=== PATIENT | male | born 1960 | race Caucasian/White ===

== ENCOUNTER 2018-07-10 00:06 | Inpatient (IN) ==
[2018-07-10] MEDS ORDERED: *HR* LORazepam 2 MG/ML VIAL IM PRN (00:19)
[2018-07-10] MEDS ORDERED: Mag Hydrox/Al Hydrox/Simeth 30 ML UDC PO PRN (00:19)
[2018-07-10] MEDS ORDERED: *HR* LORazepam 1 MG TABLET PO PRN (00:19)
[2018-07-10] MEDS ORDERED: MOM Conc 10 ML UD.LIQ PO PRN (00:19)
[2018-07-10] MEDS: hydrOXYzine pamoate 25 MG CAPSULE PO PRN ×2 (01:48→20:28)
[2018-07-10] MEDS: traZODone 50 MG TABLET PO PRN ×2 (01:48→20:29)
[2018-07-10] MEDS ORDERED: Ziprasidone injection 20 MG/ML VIAL IM PRN (07:19)
[2018-07-10] MEDS ORDERED: Ziprasidone 20 MG CAPSULE PO PRN (07:32)
--- NOTE | 2018-07-10 10:58 | Psychiatry History & Physical ---
Date of Encounter: 07/10/18 Time of Encounter: 10:25 History of Present Illness Patient Stated Chief Complaint: i am not able to function. Medicare Admission Attestation: For traditional Medicare patients the provided hospital inpatient services are reasonable and necessary and in the case of services not specified as inpatient -only under 42 CFR 419.22 (n), that they are appropriately provided as inpatient services in accordance 42 CFR 412.3. For Critical Access Hospital the patient may reasonably be expected to be discharged or transferred to a hospital within 96 hours after admission to the Critical Access Hospital. Admitted From: Direct Admit Plans for Post Hospital Care: Home History of Present Illness: Mr. Huang is a 57 year old male evaluated today. He was direct admission from [facility] , he has long psychiatric history of depression , anxiety , psychosis and suicidal attempts. as per him he is frustrated that he is unable to do things and has bad concenteration and memory , states was in [facility] for 25 months and does not know why states i was in wheel chair now i am walking with walker , he has had back surgeries and knee replacement , he was dc on 02/15. He states he has not been given any psych medication for long time and has been feeling depress, i can not snap out of it, i am paranoid and i do not care about anything and not interested in any thing ,hopeless, worthless and suicidal thoughts , he had plan to shoot self but i do not now. States i should have when i jumped off the bridge but i did not , he regrets why he is still alive. At present depress, suicidal passive thoughts, no motivation , sleep is ok with medication , otherwise not, he at present is high risk as 3 lethal suicide attempts in past. He denies any substance use . cig. 1 ppd. Medical: chronic pain , multiple surgeries, Family : none Social Single , one child who is was 28 yrs old he OD on heroin. lives with his sister, on disability . legal none Will start medication , inpatient psychiatric treatment for safety . start cymballta 30 mg po am as he has taken almost all ssri and without much improvement. hydroxyzine prn abilify 2 mg pm Past Med Surg Social Fam HX - Past Medical History Medical history: COPD, migraine - Past Psychiatric History Psychiatric history: Reports: anxiety, bipolar, depression, prior suicide attempt, previous psychiatric hospitalization Family psychiatric history: No Family History of Suicide: None - Past Surgical History Surgical History: orthopedic, other (knee replacement and back surgeries) - Social History Smoking Status: Current every day smoker Smokeless Tobacco Status: No Alcohol use: rarely Drug use: none Occupational status: disabled Current living situation: Home, With Family Activity Level: Uses cane/walker Recent Out of Country Travel Within the Last 8 Weeks: No Exposure or Possible Exposure to Illness During Travel: No Medications & Allergies 3 Allergy/AdvReac Type Severity Reaction Status Date / Time haloperidol [From Haldol] Allergy Anaphylaxis Verified 07/10/18 00:18 tramadol Allergy Agitated Verified 07/10/18 00:18 Review of Systems Constitutional: Denies: fever, chills, weakness, weight change Eyes: Denies: eye pain, vision change Ears, Nose, Throat: Denies: ear pain, throat pain, dental pain, hearing loss, congestion Cardiovascular: Denies: chest pain, palpitations, dyspnea on exertion Respiratory: Denies: cough, dyspnea, wheezes Gastrointestinal: Denies: abdominal pain, nausea, vomiting, diarrhea, constipation Genitourinary male: Denies: urgency, dysuria, frequency, genital lesions Musculoskeletal: Reports: back pain, joint pain Integumentary: Denies: rash, lesions, pruritus Neurological: Denies: headache, weakness, numbness, memory loss Psychiatric: Reports: depression, anxiety, abnormal sleep pattern, suicidal ideation, change in appetite, difficulty concentrating, hopelessness, mood swings Endocrine: Denies: fatigue, heat or cold intolerance Hematologic/Lymphatic: Denies: easy bruising, lymphadenopathy Allergic/Immunologic: Denies: urticaria, itchy eyes Exam - HEENT Head exam IM: Present: atraumatic, normal inspection, normocephalic Eye exam IM: Present: EOMI, normal appearance, PERRL ENT exam IM: Present: normal exam - Neurological Neurological exam: Present: CN II-XII intact - Respiratory Respiratory exam IM: Present: CTAB - Skin Skin exam IM: Present: dry, warm - Constitutional Vitals: Temp Pulse Resp BP 97.8 F 101 18 119/76 07/10/18 09:00 07/10/18 09:00 07/10/18 09:00 07/10/18 09:00 General appearance: average - Musculoskeletal Gait: slow, other (with walker) Station: other Strength & Tone: normal for patient - Psychiatric Patient Orientation: Yes Person, Yes Time, Yes Place Level of alertness: Alert Behavior: calm, cooperative, withdrawn Psychomotor activity: Slowed Eye Contact: Maintains Eye Contact Mood Description: Depressed, Anxious Affect description: congruent with mood Speech Volume: Normal Speech pattern: normal rate, normal rhythm, normal tone, coherent Language & Vocabulary: consistent with education Thought Process: Slowed Thinking Thought Content: Yes Suicidal ideation, Yes Guilt Attention Span Ability: Unable to Sustain Attention Memory Description: Grossly Intact Patient Reliability: Reliable Historian Fund of knowledge: Yes average Intelligence Estimate: Average Judgment: Limited Insight: Partial Assessment and Plan (1) Suicidal ideation Current visit: Yes Status: Acute Plan: Admit inpatient for safety and stabilization, Close observation, Suicide Precautions per unit protocol, Encourage participation in unit milieu, Group Therapy, Monitor sleep, Monitor appetite, Secure weapons, Family/Supportive other meeting Risks, benefits, side effects, alternatives discussed w/pt: Yes Patient agreeable to treatment: Yes Plans for Post Hospital Care: at Home (2) Major depress dis, severe Current visit: Yes Status: Acute Plan: Admit inpatient for safety and stabilization, Close observation, Suicide Precautions per unit protocol, Encourage participation in unit milieu, Group Therapy, Monitor sleep, Monitor appetite, Secure weapons, Family/Supportive other meeting Additional Plan: will start medication and needs inpatient for safety Risks, benefits, side effects, alternatives discussed w/pt: Yes Patient agreeable to treatment: Yes Plans for Post Hospital Care: at Home Estimated Length of Stay (Days): 5
[2018-07-10] MEDS: ARIPiprazole 2 MG TABLET PO SCH (11:27)
[2018-07-10] MEDS: Nicotine 2 MG GUM BC PRN ×3 (11:28→20:28)
[2018-07-10 11:40] LABS: Hematocrit 47.3 % (37.5-50.1); Hemoglobin 14.5 g/dL (12.9-16.9); Mean Corpuscular HGB Conc 30.7 g/dL (31.6-35.5); Mean Corpuscular Hemoglobin 23.1 pg (28.0-33.3); Mean Corpuscular Volume 75.4 fL (83.0-100.0); Mean Platelet Volume 9.7 fL (9.4-12.4); Platelet Count 291 K/mcL (140-400); Red Blood Count 6.27 M/mcL (4.19-5.50); Red Cell Distribution Width 22.7 % (11.5-14.5)
[2018-07-10 12:14] LABS: Alanine Aminotransferase 43 Units/L (7-52); Albumin 3.8 g/dL (3.5-5.7); Albumin/Globulin Ratio 1.2 (1.1-2.2); Alkaline Phosphatase 114 Units/L (34-104); Aspartate Amino Transferase 37 Units/L (13-39); BUN/Creatinine Ratio 17 (6-26); Bilirubin,Total 0.4 mg/dL (0.3-1.0); Blood Urea Nitrogen 16 mg/dL (6-20); Calcium 9.3 mg/dL (8.6-10.3); Carbon Dioxide 22 mEq/L (23-29); Chloride 108 mEq/L (98-107); Globulin 3.2 g/dL (2.4-3.5); Glucose 99 mg/dL (70-105); Osmolality,Calculated 289 (280-300); Potassium 4.4 mEq/L (3.5-5.1); Sodium 139 mEq/L (136-145); eGFR For Non-African Americans > 60 (> 60)
[2018-07-10 12:15] LABS: Thyroid Stimulating Hormone 1.738 mcIU/mL (0.340-5.600)
[2018-07-10] MEDS: Acetaminophen 325 MG TABLET PO PRN (20:28)
[2018-07-11] MEDS: ARIPiprazole 2 MG TABLET PO SCH (10:42)
[2018-07-11] MEDS: Nicotine 2 MG GUM BC PRN ×3 (10:43→18:55)
--- NOTE | 2018-07-11 11:47 | Psychiatry Progress Note ---
Date of Encounter: 07/11/18 Time of Encounter: 11:45 Subjective Interval history: Patient is a 57-year-old male. The patient has been admitted involuntarily. Chief complaint what else will help my depression. The patient has been treated for depression. The history suggests that he is primarily been placed on SSRIs. He was not working with his local [facility] called [facility] in [facility]. Instead the patient presented for ongoing treatment. 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 He is not currently involved in counseling or psychotherapy. Nonetheless the patient meets most criteria for treatment refractory depression. Based on this and medication selections he was started on Cymbalta 30 mg per day this may also have to do with the patient's orthopedic injuries. He is tolerated 30 mg without significant side effects. The patient is also been placed on Abilify for augmentation. And is tolerated 2 mg The patient and I engaged in a session of counseling. The counseling when on for a total of 18 minutes with 10 minutes being devoted to the in and visit. Thus the counseling was greater than 50% of the visit. In that counseling we talked about treatment refractory depression and treatment options with medications. We talked about FDA approved neuromodulator karen treatment. This includes transcranial magnetic stimulation, electroconvulsive therapy or ECT, vagus nerve stimulation (VNS), and deep brain stimulation for depression, DBS. The patient lives in a referral part of [place] and does not have ready access to TMS. It is a bit of a drive for ECT but he is interested in this treatment and we talked about some of the facilities he likes the idea of [facility] in [facility]. He is familiar with some of the features of ECT. He is interested in a favorable response rate and help with depression. The patient has had suicidal ideation only has no plans to kill himself here he asked himself why he is alive he feels hopeless and helpless. Nonetheless patient was cautioned that a second trial medicine would be advised and follow- up at [facility] would be part of the treatment for referral for ECT could be considered. Said the patient considered these options and elected to increase duloxetine to 60 mg per day. Side effects were discussed as part of the counseling area the patient has a wheeled walker that he uses for ambulation Review of Systems Psychiatric: Reports: depression, anxiety, abnormal sleep pattern, suicidal ideation, change in appetite, difficulty concentrating, hopelessness, mood swings Results - Vital Signs Vital Signs: Temp Pulse Resp BP 97.1 F L 103 18 120/85 07/11/18 09:00 07/11/18 09:00 07/11/18 09:00 07/11/18 09:00 - Labs Labs: Laboratory Results - last 24 hr 07/10/18 11:25 Sodium 139 Potassium 4.4 Chloride 108 H Carbon Dioxide 22 L BUN 16 Creatinine 0.92 Est GFR ( Amer) > 60 Est GFR (Non-Af Amer) > 60 BUN/Creatinine Ratio 17 Glucose 99 Calculated Osmolality 289 Calcium 9.3 Total Bilirubin 0.4 AST 37 ALT 43 Alkaline Phosphatase 114 H Serum Total Protein 7.0 Albumin 3.8 Globulin 3.2 Albumin/Globulin Ratio 1.2 TSH 1.738 Assessment and Plan (1) Major depress dis, severe Current visit: Yes Status: Acute Plan: Continue hospitalization, Close observation, Suicide Precautions per unit protocol, Encourage participation in unit milieu, Group Therapy, Secure weapons Risks, benefits, side effects, alternatives discussed w/pt: Yes Patient agreeable to treatment: Yes (2) Suicidal ideation Current visit: Yes Status: Acute Plan: Continue hospitalization, Secure weapons Risks, benefits, side effects, alternatives discussed w/pt: Yes Patient agreeable to treatment: Yes Consult Discharge Plan - Plan Referrals: Mark Whitaker [facility] [Outside] - 07/24/18 2:00 pm (The above appointment is with Ami Heck, marionette performer, to establish you as a client. When you come to your first appointment, you will be completing paperwork, meeting with an marionette performer, and developing a treatment plan. You will receive follow- up appointments for on-going mental health services, which could include community support, individual counseling, and/or groups. You are also scheduled to see Javed Mohinder on 07/30/2018 at 10:30 AM for outpatient psychiatric assessment and medication management services. You must keep your intake appointment in order to see the psychiatric prescriber. Please bring your insurance card and photo ID to you first appointment. If you are unable to keep this appointment, 24 hour business notice of cancellation is expected. The above appointment(s) reflects first availability. You may contact the office regularly to check for cancellations that may allow you to be seen sooner.) Payal De La Torre MD [Non-Partnered Physician] - 07/17/18 10:40 am (The above appointment is with Dr. De La Torre to establish with a primary care provider. Please bring your photo ID and insurance card to this appointment) Psychiatry Exam - Constitutional Vitals: Temp Pulse Resp BP 97.1 F L 103 18 120/85 07/11/18 09:00 07/11/18 09:00 07/11/18 09:00 07/11/18 09:00 General appearance: age & developmentally appropriate, unkempt, thin - Musculoskeletal Gait: other Station: stooped Strength & Tone: mild weakness - Psychiatric Patient Orientation: Yes Person, Yes Time, Yes Place, Yes Circumstance Level of alertness: Alert Behavior: calm Psychomotor activity: Normal Eye Contact: Maintains Eye Contact Mood Description: Depressed Affect description: dysphoric Speech Volume: Normal Speech pattern: normal rate Language & Vocabulary: consistent with education Thought Process: Logical Thought Content: Yes Suicidal ideation, Yes Obsessive thoughts, Yes Guilt Attention Span Ability: Capable of Focused Attention Memory Description: Grossly Intact Patient Reliability: Reliable Historian Fund of knowledge: Yes abstraction ability Intelligence Estimate: Average Judgment: Fair Insight: Partial
[2018-07-11] MEDS: Acetaminophen 325 MG TABLET PO PRN (20:07)
[2018-07-11] MEDS: hydrOXYzine pamoate 25 MG CAPSULE PO PRN (20:07)
[2018-07-11] MEDS: traZODone 50 MG TABLET PO PRN (20:07)
[2018-07-12] MEDS: ARIPiprazole 2 MG TABLET PO SCH (10:45)
[2018-07-12] MEDS: Nicotine 2 MG GUM BC PRN (10:46)
--- NOTE | 2018-07-12 11:38 | Psychiatry Progress Note ---
Date of Encounter: 07/12/18 Time of Encounter: 11:30 Subjective Interval history: The patient is a 57-year-old white male. Chief complaint I am some trouble with attention and concentration. The patient continues to have features of major depressive disorder including suicidal ideation. He has no plans to kill himself on the unit. He finds difficult to follow conversations area yesterday the patient and I talked about electroconvulsive therapy. We discussed options at [place] and I gave him the information for Dr. Amaury Cosme of [facility]. This included the address and contact. Nonetheless the patient has follow-up appointments in his home town with his mental Health Center and he was told that he needed to follow up with these before beginning a course of ECT he notes that he still having pain that is contributing to his depression as it can lead to psychomotor slowing and limited activity concentration. He agreed to a trial of baclofen 10 mg 3 times a day. The patient still has trouble with attention concentration. I told him to look at the sports and news for recent events and try to discuss those with others to see how he did. Patient was also told he could not talk to his sister in a conversation see how conversation goes. The patient agreed to an increase in Abilify 5 mg daily at bedtime. He notes no particular side effects of headaches nausea and dizziness unsteadiness or incoordination or restlessness. The patient's Cymbalta is not 60 mg per day. I did not want to increase this further as he is not only had one dose. As part of today's visit. The patient and I spent 25 minutes in discussion 8 minutes were spent on the adjustments of medications. And 22 minutes were spent on discussion of how to measure treatment response how to access ECT and management of major depression side effects. Review of Systems Psychiatric: Reports: depression, anxiety, abnormal sleep pattern, suicidal ideation, change in appetite, anhedonia, memory loss, difficulty concentrating, hopelessness, mood swings Results - Vital Signs Vital Signs: Temp Pulse Resp BP 98.3 F 75 18 139/76 07/11/18 19:45 07/11/18 19:45 07/11/18 19:45 07/11/18 19:45 Assessment and Plan (1) Major depress dis, severe Current visit: Yes Status: Acute Plan: Continue hospitalization, Close observation, Suicide Precautions per unit protocol, Monitor sleep, Monitor appetite Risks, benefits, side effects, alternatives discussed w/pt: Yes Patient agreeable to treatment: Yes (2) Suicidal ideation Current visit: Yes Status: Acute Plan: Suicide Precautions per unit protocol, Secure weapons Risks, benefits, side effects, alternatives discussed w/pt: Yes Patient agreeable to treatment : Yes Consult Discharge Plan - Plan Referrals: Mark RAIN Julianne [facility] [Outside] - 07/24/18 2:00 pm (The above appointment is with Ami Heck, triage clinician, to establish you as a client. When you come to your first appointment, you will be completing paperwork, meeting with an triage clinician, and developing a treatment plan. You will receive follow- up appointments for on-going mental health services, which could include community support, individual counseling, and/or groups. You are also scheduled to see Javed Mohinder on 07/30/2018 at 10:30 AM for outpatient psychiatric assessment and medication management services. You must keep your intake appointment in order to see the psychiatric prescriber. Please bring your insurance card and photo ID to you first appointment. If you are unable to keep this appointment, 24 hour business notice of cancellation is expected. The above appointment(s) reflects first availability. You may contact the office regularly to check for cancellations that may allow you to be seen sooner.) Payal De La Torre MD [Non-Partnered Physician] - 07/17/18 10:40 am (The above appointment is with Dr. De La Torre to establish with a primary care provider. Please bring your photo ID and insurance card to this appointment) Psychiatry Exam - Constitutional Vitals: Temp Pulse Resp BP 98.3 F 75 18 139/76 07/11/18 19:45 07/11/18 19:45 07/11/18 19:45 07/11/18 19:45 General appearance: age & developmentally appropriate - Musculoskeletal Gait: shuffling Station: slouched Strength & Tone: mild weakness - Psychiatric Patient Orientation: Yes Person, Yes Time, Yes Place, Yes Circumstance Level of alertness: Alert Behavior: anxious Psychomotor activity: Slowed Eye Contact: Maintains Eye Contact Mood Description: Depressed Affect description: congruent with mood Speech Volume: Normal Speech pattern: spontaneous Language & Vocabulary: consistent with education Thought Process: Intact, Slowed Thinking Thought Content: Yes Suicidal ideation Attention Span Ability: Capable of Sustained Attention Memory Description: Grossly Intact Patient Reliability: Reliable Historian Fund of knowledge: Yes abstraction ability Intelligence Estimate: Average Judgment: Fair Insight: Partial
[2018-07-12] MEDS: Baclofen 10 MG TABLET PO SCH ×2 (15:27→20:15)
[2018-07-12] MEDS: Nicotine 21 MG PATCH.TD24 TD SCH (15:27)
[2018-07-12] MEDS: traZODone 50 MG TABLET PO PRN (20:15)
[2018-07-12] MEDS: Acetaminophen 325 MG TABLET PO PRN (20:16)
[2018-07-12] MEDS: hydrOXYzine pamoate 25 MG CAPSULE PO PRN (20:44)
[2018-07-13] MEDS: Baclofen 10 MG TABLET PO SCH ×3 (09:12→20:07)
[2018-07-13] MEDS: ARIPiprazole 5 MG TABLET PO SCH (09:12)
[2018-07-13] MEDS: Nicotine 21 MG PATCH.TD24 TD SCH (09:13)
[2018-07-13] MEDS: Acetaminophen 325 MG TABLET PO PRN ×2 (09:14→20:09)
--- NOTE | 2018-07-13 12:57 | Psychiatry Progress Note ---
Date of Encounter: 07/13/18 Time of Encounter: 12:54 Subjective Interval history: Patient seen for follow-up. Case discussed was nursing staff. Patient continues to endorse suicidal ideation. Reports sleep is improving, he is depressed and focused on pain. He is not participating in group activities. Review of Systems Psychiatric: Reports: depression, anxiety, abnormal sleep pattern, suicidal ideation, change in appetite, anhedonia, memory loss, difficulty concentrating, hopelessness, mood swings Results - Vital Signs Vital Signs: Temp Pulse Resp BP 97.6 F 96 20 122/85 07/13/18 09:00 07/13/18 09:00 07/13/18 09:00 07/13/18 09:00 Consult Discharge Plan - Plan Referrals: Mark Whitaker [facility] [Outside] - 07/24/18 2:00 pm (The above appointment is with Ami Heck, eight section blower, to establish you as a client. When you come to your first appointment, you will be completing paperwork, meeting with an eight section blower, and developing a treatment plan. You will receive follow- up appointments for on-going mental health services, which could include community support, individual counseling, and/or groups. You are also scheduled to see Javed Vines on 07/30/2018 at 10:30 AM for outpatient psychiatric assessment and medication management services. You must keep your intake appointment in order to see the psychiatric prescriber. Please bring your insurance card and photo ID to you first appointment. If you are unable to keep this appointment, 24 hour business notice of cancellation is expected. The above appointment(s) reflects first availability. You may contact the office regularly to check for cancellations that may allow you to be seen sooner.) Payal De La Torre MD [Non-Partnered Physician] - 07/17/18 10:40 am (The above appointment is with Dr. De La Torre to establish with a primary care provider. Please bring your photo ID and insurance card to this appointment) Psychiatry Exam - Constitutional Vitals: Temp Pulse Resp BP 97.6 F 96 20 122/85 07/13/18 09:00 07/13/18 09:00 07/13/18 09:00 07/13/18 09:00 General appearance: age & developmentally appropriate, well-nourished, unkempt - Musculoskeletal Gait: normal, other (Using a walker) Station: relaxed Strength & Tone: normal for patient - Psychiatric Patient Orientation: Yes Person, Yes Time, Yes Place Level of alertness: Alert Behavior: calm, cooperative Psychomotor activity: Slowed Eye Contact: Maintains Eye Contact Mood Description: Depressed Affect description: congruent with mood, constricted Speech Volume: Normal Speech pattern: normal rate, normal rhythm, normal tone, fluent, spontaneous, limited Language & Vocabulary: consistent with education Thought Process: Linear, Goal Oriented Thought Content: Yes Suicidal ideation, No Homicidal ideation, No Overt delusions Perceptual Disturbances: No Auditory hallucinations, No Visual hallucinations Attention Span Ability: Capable of Focused Attention Memory Description: Grossly Intact Patient Reliability: Reliable Historian Fund of knowledge: Yes abstraction ability, Yes aware of current events Intelligence Estimate: Average Judgment: Limited Insight: Partial
[2018-07-13] MEDS: hydrOXYzine pamoate 25 MG CAPSULE PO PRN ×2 (15:49→20:07)
[2018-07-13] MEDS: traZODone 50 MG TABLET PO PRN (20:08)
[2018-07-14] MEDS: ARIPiprazole 5 MG TABLET PO SCH (09:05)
[2018-07-14] MEDS: Baclofen 10 MG TABLET PO SCH ×3 (09:05→20:27)
[2018-07-14] MEDS: hydrOXYzine pamoate 25 MG CAPSULE PO PRN (09:08)
[2018-07-14] MEDS: Nicotine 21 MG PATCH.TD24 TD SCH (09:10)
--- NOTE | 2018-07-14 13:22 | Psychiatry Progress Note ---
Date of Encounter: 07/14/18 Time of Encounter: 13:00 Subjective Interval history: Patient seen for follow-up with nursing staff. Patient continued to endorse suicidal ideation complain of feeling hopeless and unable to enjoy anything. He is asking for medication review and change and reported doing well on Klonopin in the past. He was able to function and socializes and now he is withdrawn and unable to enjoy or function. I discussed with him at length safety of benzodiazepine and risk off dependence. He is frustrated and unable to list any future plans or activities. Review of Systems Psychiatric: Reports: depression, anxiety, abnormal sleep pattern, suicidal ideation, change in appetite, anhedonia, memory loss, difficulty concentrating, hopelessness, mood swings Results - Vital Signs Vital Signs: Temp Pulse Resp BP 97.7 F 99 18 122/77 07/14/18 09:00 07/14/18 09:00 07/14/18 09:00 07/14/18 09:00 Consult Discharge Plan - Plan Referrals: Mark Julianne [facility] [Outside] - 07/24/18 2:00 pm (The above appointment is with Ami Heck, asic verification engineer, to establish you as a client. When you come to your first appointment, you will be completing paperwork, meeting with an asic verification engineer, and developing a treatment plan. You will receive follow- up appointments for on-going mental health services, which could include community support, individual counseling, and/or groups. You are also scheduled to see Javed Vines on 07/30/2018 at 10:30 AM for outpatient psychiatric assessment and medication management services. You must keep your intake appointment in order to see the psychiatric prescriber. Please bring your insurance card and photo ID to you first appointment. If you are unable to keep this appointment, 24 hour business notice of cancellation is expected. The above appointment(s) reflects first availability. You may contact the office regularly to check for cancellations that may allow you to be seen sooner.) Payal De La Torre MD [Non-Partnered Physician] - 07/17/18 10:40 am (The above appointment is with Dr. De La Torre to establish with a primary care provider. Please bring your photo ID and insurance card to this appointment) Psychiatry Exam - Constitutional Vitals: Temp Pulse Resp BP 97.7 F 99 18 122/77 07/14/18 09:00 07/14/18 09:00 07/14/18 09:00 07/14/18 09:00 General appearance: age & developmentally appropriate, well-groomed, well- nourished - Musculoskeletal Gait: normal, other (Using a walker) Station: relaxed Strength & Tone: normal for patient - Psychiatric Patient Orientation: Yes Person, Yes Time, Yes Place Level of alertness: Alert Behavior: calm, cooperative, anxious, guarded, withdrawn Psychomotor activity: Normal Eye Contact: Fleeting Contact Mood Description: Depressed, Anxious Affect description: congruent with mood, constricted, dysphoric Speech Volume: Normal Speech pattern: normal rate, normal rhythm, normal tone, fluent, spontaneous, limited Language & Vocabulary: consistent with education Thought Process: Linear, Goal Oriented Thought Content: Yes Suicidal ideation, No Homicidal ideation, No Overt delusions Perceptual Disturbances: No Auditory hallucinations, No Visual hallucinations Attention Span Ability: Capable of Focused Attention Memory Description: Grossly Intact Patient Reliability: Reliable Historian Fund of knowledge: Yes abstraction ability, Yes aware of current events Intelligence Estimate: Average Judgment: Limited Insight: Partial
[2018-07-14] MEDS: clonazePAM 1 MG TABLET PO SCH (20:27)
[2018-07-14] MEDS: traZODone 50 MG TABLET PO PRN (20:27)
[2018-07-15] MEDS: ARIPiprazole 5 MG TABLET PO SCH (09:26)
[2018-07-15] MEDS: Nicotine 21 MG PATCH.TD24 TD SCH (09:26)
[2018-07-15] MEDS: Baclofen 10 MG TABLET PO SCH ×3 (09:26→20:27)
[2018-07-15] MEDS: clonazePAM 1 MG TABLET PO SCH ×2 (09:26→20:27)
--- NOTE | 2018-07-15 13:48 | Psychiatry Progress Note ---
Date of Encounter: 07/15/18 Time of Encounter: 13:00 Subjective Interval history: Patient seen for follow-up. Case discussed at length with treatment team and social work administrator. Patient continued to be negative, making no effort to participate in activities or groups continued to make negative statements about his inability to do activities that he did in the past. He has no insight into the treatment plan and the treatment procedures, he also is demanding medication Klonopin and large ptosis after given him a small dose to help was what he "anxiety he is demanding increase in those ptosis most likely because of dependence. I educated him about medication and explained that these medication are not the answer to his condition or improving his depression. He is not motivated to do activities he has no insight into his discharge plan or living situation and I believe he may be only appropriate for placement in extended-care facility was supportive services. lithographic general worker will discuss discharge plans with his sister to decided on placement or living with his sister. Review of Systems Psychiatric: Reports: depression, anxiety, abnormal sleep pattern, suicidal ideation, change in appetite, anhedonia, memory loss, difficulty concentrating, hopelessness, mood swings Results - Vital Signs Vital Signs: Temp Pulse Resp BP 96.8 F L 99 16 113/81 07/15/18 09:00 07/15/18 09:00 07/15/18 09:00 07/15/18 09:00 Consult Discharge Plan - Plan Referrals: Mark Whitaker [facility] [Outside] - 07/24/18 2:00 pm (The above appointment is with Ami Heck, addressing machine operator, to establish you as a client. When you come to your first appointment, you will be completing paperwork, meeting with an addressing machine operator, and developing a treatment plan. You will receive follow- up appointments for on-going mental health services, which could include community support, individual counseling, and/or groups. You are also scheduled to see Javed Vines on 07/30/2018 at 10:30 AM for outpatient psychiatric assessment and medication management services. You must keep your intake appointment in order to see the psychiatric prescriber. Please bring your insurance card and photo ID to you first appointment. If you are unable to keep this appointment, 24 hour business notice of cancellation is expected. The above appointment(s) reflects first availability. You may contact the office regularly to check for cancellations that may allow you to be seen sooner.) Payal De La Torre MD [Non-Partnered Physician] - 07/17/18 10:40 am (The above appointment is with Dr. De La Torre to establish with a primary care provider. Please bring your photo ID and insurance card to this appointment) Psychiatry Exam - Constitutional Vitals: Temp Pulse Resp BP 96.8 F L 99 16 113/81 07/15/18 09:00 07/15/18 09:00 07/15/18 09:00 07/15/18 09:00 General appearance: age & developmentally appropriate, well-groomed, well- nourished - Musculoskeletal Gait: normal, other (Uses walker) Station: relaxed Strength & Tone: normal for patient - Psychiatric Patient Orientation: Yes Person, Yes Time, Yes Place Level of alertness: Alert Behavior: calm, cooperative Psychomotor activity: Slowed Eye Contact: Minimal Contact Mood Description: Euthymic/stable, Depressed Affect description: congruent with mood, constricted Speech Volume: Normal Speech pattern: normal rate, normal rhythm, normal tone, fluent, spontaneous, limited Language & Vocabulary: consistent with education Thought Process: Linear, Goal Oriented, Tangential, Saline Thought Content: No Suicidal ideation, No Homicidal ideation, No Overt delusions Perceptual Disturbances: No Auditory hallucinations, No Visual hallucinations Attention Span Ability: Unable to Focus Memory Description: Grossly Intact Patient Reliability: Questionable Historian Fund of knowledge: Yes abstraction ability, Yes aware of current events Intelligence Estimate: Average Judgment: Limited Insight: Minimal
[2018-07-15] MEDS: hydrOXYzine pamoate 25 MG CAPSULE PO PRN ×2 (14:36→20:27)
[2018-07-15] MEDS: traZODone 50 MG TABLET PO PRN (20:27)
[2018-07-15] MEDS: Acetaminophen 325 MG TABLET PO PRN (20:27)
[2018-07-16] MEDS: Baclofen 10 MG TABLET PO SCH ×3 (08:40→20:41)
[2018-07-16] MEDS: ARIPiprazole 5 MG TABLET PO SCH (08:40)
[2018-07-16] MEDS: Nicotine 21 MG PATCH.TD24 TD SCH (08:40)
[2018-07-16] MEDS: clonazePAM 1 MG TABLET PO SCH ×2 (08:40→20:41)
--- NOTE | 2018-07-16 13:39 | Psychiatry Progress Note ---
Date of Encounter: 07/16/18 Time of Encounter: 13:34 Subjective Interval history: Patient seen for follow-up with activity staff. Case was discussed was treatment team . Patient continued to report and endorse suicidal thoughts without any plan, his discharge planning has been challenging and social work is trying to find appropriate disposition and safe discharge. Patient reports unrealistic expectations and demands from himself and expects to be able to function at the level of 25 years ago. Patient was able to this to some activities that are available in the [employer], [employer], going to the park. Community transportation is available on demand. However his motivation is poor. Review of Systems Psychiatric: Reports: depression, anxiety, abnormal sleep pattern, suicidal ideation, change in appetite, anhedonia, memory loss, difficulty concentrating, hopelessness, mood swings Results - Vital Signs Vital Signs: Temp Pulse Resp BP 97.4 F L 93 18 117/80 07/16/18 09:00 07/16/18 09:00 07/16/18 09:00 07/16/18 09:00 Assessment and Plan (1) Major depress dis, severe Current visit: Yes Status: Acute Plan: Continue hospitalization, Close observation, Suicide Precautions per unit protocol, Encourage participation in unit milieu, Group Therapy, Monitor sleep, Monitor appetite Risks, benefits, side effects, alternatives discussed w/pt: Yes Patient agreeable to treatment: Yes Consult Discharge Plan - Plan Referrals: Mark Whitaker [facility] [Outside] - 07/24/18 2:00 pm (The above appointment is with Ami Heck, department store general manager, to establish you as a client. When you come to your first appointment, you will be completing paperwork, meeting with an department store general manager, and developing a treatment plan. You will receive follow- up appointments for on-going mental health services, which could include community support, individual counseling, and/or groups. You are also scheduled to see Javed Vines on 07/30/2018 at 10:30 AM for outpatient psychiatric assessment and medication management services. You must keep your intake appointment in order to see the psychiatric prescriber. Please bring your insurance card and photo ID to you first appointment. If you are unable to keep this appointment, 24 hour business notice of cancellation is expected. The above appointment(s) reflects first availability. You may contact the office regularly to check for cancellations that may allow you to be seen sooner.) Payal De La Torre MD [Non-Partnered Physician] - 07/23/18 9:20 am (The above appointment is with Dr. De La Torre to establish with a primary care provider. Please bring your photo ID and insurance card to this appointment) Psychiatry Exam - Constitutional Vitals: Temp Pulse Resp BP 97.4 F L 93 18 117/80 07/16/18 09:00 07/16/18 09:00 07/16/18 09:00 07/16/18 09:00 General appearance: age & developmentally appropriate, well-groomed, well- nourished - Musculoskeletal Gait: normal, other (Use a walker) Station: relaxed Strength & Tone: normal for patient - Psychiatric Patient Orientation: Yes Person, Yes Time, Yes Place Level of alertness: Alert Behavior: calm, cooperative, guarded Psychomotor activity: Slowed Eye Contact: Fleeting Contact Mood Description: Euthymic/stable, Depressed Affect description: congruent with mood, constricted Speech Volume: Normal Speech pattern: normal rate, normal rhythm, normal tone, fluent, limited Language & Vocabulary: consistent with education Thought Process: Linear, Goal Oriented Thought Content: Yes Suicidal ideation, No Homicidal ideation, No Overt delusions Perceptual Disturbances: No Auditory hallucinations, No Visual hallucinations Attention Span Ability: Capable of Focused Attention Memory Description: Grossly Intact Patient Reliability: Questionable Historian Fund of knowledge: Yes abstraction ability, Yes below average, Yes aware of current events Intelligence Estimate: Average Judgment: Limited Insight: Partial
[2018-07-16] MEDS: hydrOXYzine pamoate 25 MG CAPSULE PO PRN (16:13)
[2018-07-17] MEDS: Baclofen 10 MG TABLET PO SCH (08:59)
[2018-07-17] MEDS: Nicotine 21 MG PATCH.TD24 TD SCH (08:59)
[2018-07-17] MEDS: clonazePAM 1 MG TABLET PO SCH (08:59)
[2018-07-17] MEDS: ARIPiprazole 5 MG TABLET PO SCH (08:59)
[2018-07-17 09:16] VITALS: BP 109/81
--- NOTE | 2018-07-17 10:47 | Discharge Summary ---
Date of Encounter: 07/17/18 Time of Encounter: 10:39 Diagnosis - Discharge Diagnosis (1) Major depress dis, severe Status: Acute Medications - Discharge Medications Prescriptions: ARIPiprazole [Abilify] 5 mg PO DAILY #30 tablet Baclofen [Lioresal] 10 mg PO TID #90 tablet DULoxetine [Cymbalta] 60 mg PO DAILY #60 capsule. hydrOXYzibrando pamoate [HydrOXYzine Pamoate] 25 mg PO TID PRN #60 capsule PRN Reason: Anxiety ARIPiprazole [Abilify] 5 mg PO DAILY #30 tablet 07/17/18 [Rx] Baclofen [Lioresal] 10 mg PO TID #90 tablet 07/17/18 [Rx] DULoxetine [Cymbalta] 60 mg PO DAILY #60 capsule. 07/17/18 [Rx] hydrOXYzine pamoate [HydrOXYzine Pamoate] 25 mg PO TID PRN #60 capsule 07/17/18 [Rx] 3 Allergy/AdvReac Type Severity Reaction Status Date / Time haloperidol [From Haldol] Allergy Anaphylaxis Verified 07/10/18 12:10 tramadol AdvReac Agitated Verified 07/10/18 12:10 Results Procedures and tests throughout hospitalization: Completed Lab Orders Category Date Time Status CBC no Diff [Complete Blood Count w/o Diff] [HEME] Lab 07/10/18 11:25 Completed Routine CMP [Comprehensive Metabolic Panel] Routine Lab 07/10/18 11:25 Completed TSH [Thyroid Stimulating Hormone] Routine Lab 07/10/18 11:25 Completed Provider Date of admission: 07/10/18 00:06 Primary care physician: PCP NONE Discharging clinician: [facility] Psychiatry Exam - Constitutional Vitals: Temp Pulse Resp BP 97.1 F L 98 16 109/81 07/17/18 09:00 07/17/18 09:00 07/17/18 09:00 07/17/18 09:00 Hospital Course Hospital course: Mr. Huang is a 57 year old male admitted for depression and suicidal ideation. For details of admission please see H&P On the units patient was self isolating most of the time, he attended some groups, he was not motivated to participate in activities or follow recommendation to increase his activities. He was resistant to making changes and dependent on staff in most activities and ADLs. He endorsed suicidal thoughts on and off. Without any plans. Prior to discharge he was medically stable, he denies suicidal ideation. He was pleased with discharge plans to respites and social work completed his follow-up appointments for behavioral health and primary care. Patient was encouraged and educated about participating in community activities like [facility] Center, [employer] and other activities. Patient was future oriented and nonsuicidal, tolerated medication without side effects and discharged in stable condition. - Time Spent with Patient Total time spent providing and/or coordinating discharge services: Greater than 30 minutes Assessment and Plan - Patient/Caregiver Discharge Instructions Activity: resume usual activities as tolerated Diet: regular diet - Follow up Plan Follow up with: Mark Whitaker [facility] [Outside] - 07/24/18 2:00 pm (The above appointment is with Ami Heck, calculus tutor, to establish you as a client. When you come to your first appointment, you will be completing paperwork, meeting with an calculus tutor, and developing a treatment plan. You will receive follow- up appointments for on-going mental health services, which could include community support, individual counseling, and/or groups. You are also scheduled to see Javed Thaparich on 07/30/2018 at 10:30 AM for outpatient psychiatric assessment and medication management services. You must keep your intake appointment in order to see the psychiatric prescriber. Please bring your insurance card and photo ID to you first appointment. If you are unable to keep this appointment, 24 hour business notice of cancellation is expected. The above appointment(s) reflects first availability. You may contact the office regularly to check for cancellations that may allow you to be seen sooner.) Payal De La Torre MD [Non-Partnered Physician] - 07/23/18 9:20 am (The above appointment is with Dr. De La Torre to establish with a primary care provider. Please bring your photo ID and insurance card to this appointment) Functional capacity at discharge: uses cane/walker Overall status at discharge: Stable Disposition: Home, Self-Care Quality - Multiple Antipsychotics Patient discharged on 2 or more antipsychotic medications: No Procedures - Procedures Procedures: Medication Management, Crisis Stabilization, Supportive Therapy, Group Therapy, Psychoeducational Therapy
== END 2018-07-17 14:15 | disposition home or self-care (01) | DRG 754 ==
LOC: 1ANU 00:06 → SUATTDRO 00:06 → 1ANU 03:30
PROVIDERS: ADMIT Psychiatry & Neurology Psychiatry; ATTEND Psychiatry & Neurology Psychiatry